=== PATIENT | male | born 1980 | race Caucasian/White ===

== ENCOUNTER 2022-07-08 16:09 | Observation (INO) ==
--- NOTE | 2022-07-08 16:23 | Emergency Department Note ---
Impression & Plan Atrial fibrillation with RVR, Head injury, Concussion ED Provider Note NAME: SYLVIA SCHNEIDER AGE: 41 SEX: M : 1980 ARRIVES VIA: Walk-In INFORMANT: Patient, ED PROVIDER(S): Dinh Khan MD Chief Complaint: Headache, fall, outpatient referral for A. fib with RVR HPI: Patient presents due to concern for a fall which occurred at 1 PM. Patient states he tripped while walking the dog struck the back of his head. The patient states he had an episode of slurred speech for approximate 10 minutes but this is since resolved. The patient does feel as though he has some sort of bubble at the bottom of his chest that does move upward. No exertional symptoms. Patient states he has had similar feeling before in the past and it happens maybe twice a year. The patient does drink Monster and drinks alcohol socially but no drug use. No supplements stimulants or caffeine of than the monster drinks. Patient does complain of a dull occipital headache. No numbness weakness or tingling. Patient was seen in [facility] and referred here as the patient appeared to be in A. fib with RVR. Patient does not take any blood thinning medications. ROS: See HPI for pertinent positives and negatives. A total of 10 systems were reviewed and otherwise negative. Past medical history: See below Surgical history: See below Social history: See below Physical Exam: GENERAL: NAD, non-toxic. EYE EXAM: Normal conjunctiva. PERRL, no anisocoria and EOM's grossly intact w/o pain. Head: Normocephalic atraumatic. NECK: Supple, no nuchal rigidity, no adenopathy, non-tender. No signs of meningismus. FROM of the neck with good chin to chest and neck extension. No stridor. LUNGS: Clear to auscultation. Normal chest wall mechanics. HEART: Tachycardic and irregularly irregular, no MRG. ABDOMEN: Abdomen soft, non-tender, normo-active bowel sounds, no masses, no rebound or guarding. BACK: No CVA TTP. SKIN: No rashes and no bruising. UPPER EXTREMITIES: Upper extremities are grossly normal. LOWER EXTREMITIES: Grossly normal, no edema. Negative Homans' sign bilaterally NEURO EXAM: A&O x3, cranial nerves II-XII grossly intact, normal speech, moves all 4 extremities. Differential diagnoses: A. fib, concussion, stroke, Iinfection, dehydration, metabolic abnormality, hypo/hyperglycemia, electrolyte disturbance, anemia, hypoxia, cardiac sources, intracerebral event, toxicologic, neurologic, as well as other pathologies. Course: Patient was seen and evaluated the bedside. Full history physical exam was perf ormed. EKG interpreted by me A. fib with RVR, rate of 151, normal QRS, normal axis, no obvious ST elevations, slight depressions in the lateral leads. Repeat EKG interpreted by me Normal sinus rhythm, rate of 89, normal intervals, normal axis, T wave inversion present in lead III, no obvious ST elevations, ST depressions have resolved in the lateral leads from EKG from earlier. A. fib has resolved. Imaging Studies: See Below Cardiac monitoring: An order was placed for continuous cardiac monitoring. The monitor shows a rate of 152 with irregularly irregular and tachycardic rhythm. MDM: Patient was seen due to concern for slurred speech which has since resolved and in A. fib with RVR. Blood work is obtained along with CT of the head. Patient did receive IV fluids in addition to a dose of Cardizem. The patient's white count was normal with a normal H&H and platelet count. Kidney function was unremarkable. BSG slightly elevated 121. Troponin not elevated. Patient CT of the head negative and the patient's chest x-ray is clear. Patient has a [id number] of 1. Repeat EKG after Cardizem shows the patient was in her normal sinus rhythm. I did speak with Dr. Blanc who did not recommend that the patient be started on heparin given the low [id number] in light of the pat ient's recent head injury. I did speak the on-call hospitalist Dr. Hameed as the patient has had symptoms that may have been consistent with prior A. fib and given the patient had slurred speech even in light that this is likely related to the patient's head injury and possibly postconcussive related symptom that the patient may benefit from further work-up as A. fib could cause TIA or stroke. Patient was admitted to the medicine service. Critical Care: I have personally spent 35 minutes of critical care time in direct management of this patient. This includes bedside care, interpretation of diagnostic studies, and testing, discussion with consultants, patient, and family members, and other require inpatient management activities. This 35 minutes is in excess of all separately billable procedures. Past Med/Surg History Medical History GERD (gastroesophageal reflux disease) H/O: HTN (hypertension) Surgical History No pertinent past surgical history Social History (Updated 07/08/22 @ 21:26 by Dinh Khan MD) Smoking Status: Never smoker Hx Alcohol Use: Yes Hx Substance Use: No Preferred Language: Urdu Feels Safe at Home: Yes Home Meds Home Medications Medication Instructions Recorded Confirmed lisinopril 10 mg tablet 10 mg PO DAILY 07/08/22 07/08/22 omeprazole 20 mg capsule,delayed 20 mg PO DAILY 07/08/22 07/08/22 release Results & Data (ED) Vital Signs Vital Signs - 24 hr 07/08/22 16:15 07/08/22 16:41 07/08/22 16:41 Temperature 36.4 C L Temperature Source Temporal Artery Scan Pulse Rate 110 H Pulse Rate [Left Radial] 70 Pulse Rhythm Irregular Pulse Rhythm [Left Radial] Respiratory Rate 20 20 Respiratory Effort / Characteristics Non-Labored Spontaneous Respiratory Depth Normal Blood Pressure 139/95 Blood Pressure [Left Arm] 134/74 Blood Pressure Mean 109 Blood Pressure Mean [Left Arm] 94 Blood Pressure Position [Left Arm] Pulse Oximetry 98 97 Oxygen Delivery Method Room Air Room Air Room Air Sepsis Recent Fever Within 48 Hours No Sepsis New/Unexplained Change in Mental Status No Sepsis Action Taken by Nursing No Action Required 07/08/22 16:41 07/08/22 17:27 07/08/22 18:11 Temperature Temperature Source Pulse Rate 155 H 185 H Pulse Rate [Left Radial] 88 Pulse Rhythm Irregular Irregular Pulse Rhythm [Left Radial] Respiratory Rate 20 20 16 Respiratory Effort / Characteristics Respiratory Depth Blood Pressure Blood Pressure [Left Arm] 140/93 Blood Pressure Mean Blood Pressure Mean [Left Arm] 108 Blood Pressure Position [Left Arm] Pulse Oximetry 97 98 95 Oxygen Delivery Method Room Air Room Air Sepsis Recent Fever Within 48 Hours Sepsis New/Unexplained Change in Mental Status Sepsis Action Taken by Nursing 07/08/22 20:00 07/08/22 20:31 Temperature Temperature Source Pulse Rate 99 H Pulse Rate [Left Radial] 70 Pulse Rhythm Pulse Rhythm [Left Radial] Regular Respiratory Rate 20 14 Respiratory Effort / Characteristics Non-Labored Respiratory Depth Normal Blood Pressure 142/108 H Blood Pressure [Left Arm] 115/77 Blood Pressure Mean Blood Pressure Mean [Left Arm] 89 Blood Pressure Position [Left Arm] Lying Pulse Oximetry 99 97 Oxygen Delivery Method Room Air Room Air Sepsis Recent Fever Within 48 Hours Sepsis New/Unexplained Change in Mental Status Sepsis Action Taken by Alf Medications Current Medication List: was personally reviewed by me Laboratory Data Attestation: I reviewed the patient's lab results. Result diagrams: 07/08/22 16:30 07/08/22 16:30 Lab Results 07/08/22 07/08/22 07/08/22 Range/Units 16:30 16:30 16:30 WBC 8.05 (4.8-10.8) K/ul RBC 5.20 (4.63-6.08) M/uL Hgb 14.5 (14.0-18.0) g/dl Hct 43.0 (40.1-51.0) % MCV 82.7 (80.0-100.0) fL MCH 27.9 (25.0-34.0) pg MCHC 33.7 (32.0-36.0) g/dL RDW Std Deviation 38.4 (36.4-46.3) fL RDW Coeff of Shila 12.7 (11.5-14.5) % Plt Count 192 (130-400) K/uL MPV 10.4 (9.4-12.4) fL Immature Gran % (Auto) 0.4 % Neut % (Auto) 69.5 % Lymph % (Auto) 18.5 % [place] % (Auto) 9.8 % Eos % (Auto) 1.4 % Baso % (Auto) 0.4 % Neut # (Auto) 5.60 (1.4-6.5) K/uL Lymph # (Auto) 1.49 (1.2-3.4) K/uL [place] # (Auto) 0.79 (0.24-0.82) K/uL Eos # (Auto) 0.11 (0-0.50) K/uL Baso # (Auto) 0.03 (0-0.2) K/uL Immature Gran # (Auto) 0.03 H (0.00-0.02) K/uL PT 10.3 (9.0-12.0) Seconds INR 1.0 (0.9-1.1) Sodium 138 (136-145) mmol/L Potassium 3.9 (3.5-5.1) mmol/L Chloride 103 (98-107) mmol/L Carbon Dioxide 28 (21-32) mmol/L Anion Gap 7 (3-11) BUN 15 (6-23) mg/dl Creatinine 1.14 (0.6-1.4) mg/dl Est Cr Clr Drug Dosing 101.9 ml/min Est GFR ( Amer) 91.4 ml/min Est GFR (Non-Af Amer) 78.9 ml/min BUN/Creatinine Ratio 13.2 (10-20) Glucose 121 H (70-99(Fasting)) mg/dl Calcium 8.7 (8.5-10.1) mg/dl Magnesium 2.1 (1.7-2.4) mg/dl Total Bilirubin 0.7 (0.2-1.0) mg/dl AST 30 (13-39) U/L ALT 39 (7-52) U/L Alkaline Phosphatase 65 (34-104) U/L Troponin I High Sens 3.7 (0-20) pg/ml Total Protein 7.1 (6.0-8.3) gm/dl Albumin 4.2 (3.4-5.0) gm/dl Globulin 2.9 (2.5-4.0) gm/dl Albumin/Globulin Ratio 1.4 (0.9-2) Lipase 24 (11-82) U/L TSH (0.300-4.500) uIu/ml Urine Color Urine Appearance (Clear) Urine pH (4.5-7.5) Ur Specific [place] (1.000-1.030) Urine Protein (Negative) Urine Glucose (UA) (Negative) Urine Ketones (Negative) Urine Blood (Negative) Urine Nitrite (Negative) Urine Bilirubin (Negative) Urine Urobilinogen (Negative) Ur Leukocyte Esterase (Negative) Lyme Disease IgG Ab (Negative) Lyme Disease IgM Ab (Negative) SARS-CoV-2, RNA, NAAT (NEGATIVE) 07/08/22 07/08/22 07/08/22 Range/Units 16:30 16:30 16:57 WBC (4.8-10.8) K/ul RBC (4.63-6.08) M/uL Hgb (14.0-18.0) g/dl Hct (40.1-51.0) % MCV (80.0-100.0) fL MCH (25.0-34.0) pg MCHC (32.0-36.0) g/dL RDW Std Deviation (36.4-46.3) fL RDW Coeff of Shila (11.5-14.5) % Plt Count (130-400) K/uL MPV (9.4-12.4) fL Immature Gran % (Auto) % Neut % (Auto) % Lymph % (Auto) % [place] % (Auto) % Eos % (Auto) % Baso % (Auto) % Neut # (Auto) (1.4-6.5) K/uL Lymph # (Auto) (1.2-3.4) K/uL [place] # (Auto) (0.24-0.82) K/uL Eos # (Auto) (0-0.50) K/uL Baso # (Auto) (0-0.2) K/uL Immature Gran # (Auto) (0.00-0.02) K/uL PT (9.0-12.0) Seconds INR (0.9-1.1) Sodium (136-145) mmol/L Potassium (3.5-5.1) mmol/L Chloride (98-107) mmol/L Carbon Dioxide (21-32) mmol/L Anion Gap (3-11) BUN (6-23) mg/dl Creatinine (0.6-1.4) mg/dl Est Cr Clr Drug Dosing ml/min Est GFR ( Amer) ml/min Est GFR (Non-Af Amer) ml/min BUN/Creatinine Ratio (10-20) Glucose (70-99(Fasting)) mg/dl Calcium (8.5-10.1) mg/dl Magnesium (1.7-2.4) mg/dl Total Bilirubin (0.2-1.0) mg/dl AST (13-39) U/L ALT (7-52) U/L Alkaline Phosphatase (34-104) U/L Troponin I High Sens (0-20) pg/ml Total Protein (6.0-8.3) gm/dl Albumin (3.4-5.0) gm/dl Globulin (2.5-4.0) gm/dl Albumin/Globulin Ratio (0.9-2) Lipase (11-82) U/L TSH 1.716 (0.300-4.500) uIu/ml Urine Color Urine Appearance (Clear) Urine pH (4.5-7.5) Ur Specific [place] (1.000-1.030) Urine Protein (Negative) Urine Glucose (UA) (Negative) Urine Ketones (Negative) Urine Blood (Negative) Urine Nitrite (Negative) Urine Bilirubin (Negative) Urine Urobilinogen (Negative) Ur Leukocyte Esterase (Negative) Lyme Disease IgG Ab Negative (Negative) Lyme Disease IgM Ab Negative (Negative) SARS-CoV-2, RNA, NAAT NEGATIVE (NEGATIVE) 07/08/22 Range/Units 17:50 WBC (4.8-10.8) K/ul RBC (4.63-6.08) M/uL Hgb (14.0-18.0) g/dl Hct (40.1-51.0) % MCV (80.0-100.0) fL MCH (25.0-34.0) pg MCHC (32.0-36.0) g/dL RDW Std Deviation (36.4-46.3) fL RDW Coeff of Shila (11.5-14.5) % Plt Count (130-400) K/uL MPV (9.4-12.4) fL Immature Gran % (Auto) % Neut % (Auto) % Lymph % (Auto) % [place] % (Auto) % Eos % (Auto) % Baso % (Auto) % Neut # (Auto) (1.4-6.5) K/uL Lymph # (Auto) (1.2-3.4) K/uL [place] # (Auto) (0.24-0.82) K/uL Eos # (Auto) (0-0.50) K/uL Baso # (Auto) (0-0.2) K/uL Immature Gran # (Auto) (0.00-0.02) K/uL PT (9.0-12.0) Seconds INR (0.9-1.1) Sodium (136-145) mmol/L Potassium (3.5-5.1) mmol/L Chloride (98-107) mmol/L Carbon Dioxide (21-32) mmol/L Anion Gap (3-11) BUN (6-23) mg/dl Creatinine (0.6-1.4) mg/dl Est Cr Clr Drug Dosing ml/min Est GFR ( Amer) ml/min Est GFR (Non-Af Amer) ml/min BUN/Creatinine Ratio (10-20) Glucose (70-99(Fasting)) mg/dl Calcium (8.5-10.1) mg/dl Magnesium (1.7-2.4) mg/dl Total Bilirubin (0.2-1.0) mg/dl AST (13-39) U/L ALT (7-52) U/L Alkaline Phosphatase (34-104) U/L Troponin I High Sens (0-20) pg/ml Total Protein (6.0-8.3) gm/dl Albumin (3.4-5.0) gm/dl Globulin (2.5-4.0) gm/dl Albumin/Globulin Ratio (0.9-2) Lipase (11-82) U/L TSH (0.300-4.500) uIu/ml Urine Color Yellow Urine Appearance Clear (Clear) Urine pH 7.0 (4.5-7.5) Ur Specific [place] 1.003 (1.000-1.030) Urine Protein Negative (Negative) Urine Glucose (UA) Negative (Negative) Urine Ketones Negative (Negative) Urine Blood Negative (Negative) Urine Nitrite Negative (Negative) Urine Bilirubin Negative (Negative) Urine Urobilinogen Negative (Negative) Ur Leukocyte Esterase Negative (Negative) Lyme Disease IgG Ab (Negative) Lyme Disease IgM Ab (Negative) SARS-CoV-2, RNA, NAAT (NEGATIVE) Administered Medications Sodium Chloride (Nss 1000ml) 1,000 mls @ 75 mls/hr IV .[id number] EVER Stop: 08/07/22 18:29 Last Admin: 07/08/22 20:33 Dose: 75 mls/hr Documented By: ANA MARIA Miscellaneous Information (Patient's Allergy Info Needs Entered) 1 each N/A Q30M EVER Stop: 08/07/22 20:29 Last Admin: 07/08/22 20:34 Dose: Not Given Documented By: ANA MARIA Discontinued Medications Acetaminophen (Acetaminophen 500 Mg Tab) 1,000 mg PO NOW STA Stop: 07/08/22 16:39 Last Admin: 07/08/22 16:49 Dose: 1,000 mg Documented By: ANA MARIA Diltiazem HCl (Diltiazem Hcl 5 Mg/Ml 5 Ml Vial) 20 mg IV NOW STA Stop: 07/08/22 16:39 Last Admin: 07/08/22 16:51 Dose: 20 mg Documented By: ANA MARIA Co-signed By: AJIT Sodium Chloride (Nss 1000ml) 1,000 mls @ 999 mls/hr IV .Q1H1M EVER Stop: 07/08/22 17:45 Last Infusion: 07/08/22 18:13 Dose: 0 mls/hr Documented By: ANA MARIA Admin: 07/08/22 16:49 Dose: 999 mls/hr Documented By: ANA MARIA Ondansetron HCl (Ondansetron Inj 2 Mg/Ml 2 Ml Vial) 4 mg IV NOW STA Stop: 07/08/22 16:39 Last Admin: 07/08/22 16:49 Dose: 4 mg Documented By: ANA MARIA Imaging Data Radiologist's Impression: Chest X-Ray 07/08/22 16:35 XR chest 1V portable CLINICAL HISTORY: Chest Pain. COMPARISON STUDY: No previous studies for comparison. TECHNIQUE: 1 view of the chest FINDINGS: Single frontal view of the chest demonstrates the cardiomediastinal silhouette to be within normal limits. The lungs are clear of alveolar opacities. There is no evidence for pleural effusion. There is no evidence for vascular congestion. There is no acute osseous pathology. IMPRESSION: 1. No acute cardiopulmonary disease. ACT 112: Negative or not required by law. Electronically signed by: Ab Simon M.D. 07/08/2022 5:[address] 07/08/22 16:38 CT head/brain wo con CLINICAL HISTORY: fall, slurred speech COMPARISON STUDY: No previous studies for comparison. CT DOSE: 537.48 mGy.cm TECHNIQUE: Standard CT of the Brain was performed without IV contrast. A dose lowering technique was utilized adhering to the principles of ALARA. FINDINGS: Extraaxial space: There is no evidence for subdural hematoma. There are no extra-axial fluid collections. Ventricles and cisterns: The ventricles are normal in size and configuration. There is no evidence for midline shift or mass effect. Parenchyma: There is no subarachnoid or intraparenchymal hemorrhage. There is no evidence for an acute infarct or cerebral edema. There is homogeneous attenuation of the brain parenchyma. There are no gross mass lesions. Osseous structures: There is no evidence for an acute fracture. There is mild mucosal thickening involving the ethmoid air cells on the left. The remaining visualized paranasal sinuses are clear. The mastoid air cells are clear bilate rally. Soft tissues: There is no evidence for focal soft tissue swelling. IMPRESSION: 1. No acute intracerebral pathology. ACT 112: Negative or not required by law. Electronically signed by: Ab Simon M.D. 07/08/2022 5:44 PM Cervical Spine X-Ray 07/08/22 18:54 XR cervical spine 2 or 3V CLINICAL HISTORY: neck pain, s/p fall. COMPARISON STUDY: No previous studies for comparison. TECHNIQUE: 5 Views of the cervical Spine FINDINGS: Bones: There is no evidence for fracture or malalignment. The heights of the vertebral bodies are maintained. There are no lytic or blastic lesions present. Disc spaces: There is mild disc space narrowing at C5-6 and C6-7. Apophyseal joints: The apophyseal joints are intact bilaterally. Soft tissues: The paraspinal soft tissues are within normal limits. IMPRESSION: 1. No acute abnormality. 2. Mild degenerative disc disease. ACT 112: Negative or not required by law. Electronically signed by: Ab Simon M.D. 07/08/2022 7:16 PM Discharge Plan Visit Data Chief Complaint: Cardiac Assessment Stated Complaint: HEAD INJURY, SLURRED SPEECH/DIZZINESS AFTER INJURY ED Provider: Dinh Khan Discharge Problem: Atrial fibrillation with RVR, Head injury, Concussion Patient Disposition: Admitted As Inpatient Discharge Instructions Interventions: ED Discharge Assessment Last Done: 07/08/22 20:31 Forms Stand Alone Forms: [place] Prescriptions Prescriptions: No Action lisinopril 10 mg tablet 10 mg PO DAILY omeprazole 20 mg capsule,delayed release(DR/EC) 20 mg PO DAILY Referrals Referrals: Babar Buckley MD [Physician] -
[2022-07-08] MEDS ORDERED: ACETAMINOPHEN 500 MG TAB PO STA (16:38)
[2022-07-08] MEDS ORDERED: dilTIAZem HCl 5 MG/ML 5 ML VIAL IV STA (16:38)
[2022-07-08] MEDS ORDERED: ONDANSETRON INJ 2 MG/ML 2 ML VIAL IV STA (16:38)
[2022-07-08] MEDS ORDERED: SODIUM CHLORIDE 0.9% 1000ML 1,000 ML IV SCH (16:45)
[2022-07-08 16:56] LABS: Basophils # (auto) 0.03 K/uL (0-0.2); Basophils % (auto) 0.4 %; Eosinophils # (auto) 0.11 K/uL (0-0.50); Eosinophils % (auto) 1.4 %; Hemoglobin 14.5 g/dl (14.0-18.0); Immature Granulocytes # (auto) 0.03 K/uL (0.00-0.02); Immature Granulocytes % (auto) 0.4 %; Lymphocytes # (auto) 1.49 K/uL (1.2-3.4); Lymphocytes % (auto) 18.5 %; Mean Corpuscular Hemoglobin 27.9 pg (25.0-34.0); Mean Corpuscular Hgb Conc 33.7 g/dL (32.0-36.0); Mean Corpuscular Volume 82.7 fL (80.0-100.0); Mean Platelet Volume 10.4 fL (9.4-12.4); Monocytes # (auto) 0.79 K/uL (0.24-0.82); Monocytes % (auto) 9.8 %; Neutrophils % (auto) 69.5 %; Platelet Count 192 K/uL (130-400); RDW Coefficient of Variation 12.7 % (11.5-14.5); RDW Standard Deviation 38.4 fL (36.4-46.3); White Blood Count 8.05 K/ul (4.8-10.8)
[2022-07-08 17:06] LABS: Prothrombin Time 10.3 Seconds (9.0-12.0)
--- NOTE | 2022-07-08 17:21 | XRay Report ---
XR chest 1V portable CLINICAL HISTORY: Chest Pain. COMPARISON STUDY: No previous studies for comparison. TECHNIQUE: 1 view of the chest FINDINGS: Single frontal view of the chest demonstrates the cardiomediastinal silhouette to be within normal li mits. The lungs are clear of alveolar opacities. There is no evidence for pleural effusion. There is no evidence for vascular congestion. There is no acute osseous pathology. IMPRESSION: 1. No acute cardiopulmonary disease. ACT 112: Negative or not required by law. Electronically signed by: Ab Simon M.D. 07/08/2022 5:20 PM
[2022-07-08 17:27] LABS: Troponin I High Sensitivity 3.7 pg/ml (0-20)
[2022-07-08 17:32] LABS: Albumin Globulin Ratio 1.4 (0.9-2); Albumin Level 4.2 gm/dl (3.4-5.0); BUN Creatinine Ratio 13.2 (10-20); Bilirubin,Total 0.7 mg/dl (0.2-1.0); Calcium 8.7 mg/dl (8.5-10.1); Creatinine Clr Calc Pharmacy 101.9 ml/min; Est GFR (African American) 91.4 ml/min; Est GFR (Non-African American) 78.9 ml/min; Globulin 2.9 gm/dl (2.5-4.0); Magnesium 2.1 mg/dl (1.7-2.4); Potassium 3.9 mmol/L (3.5-5.1); Total Protein 7.1 gm/dl (6.0-8.3)
--- NOTE | 2022-07-08 17:45 | CT Scan Report ---
CT head/brain wo con CLINICAL HISTORY: fall, slurred speech COMPARISON STUDY: No previous studies for comparison. CT DOSE: 537.48 mGy.cm TECHNIQUE: Standard CT of the Brain was performed without IV contrast. A dose lowering technique was utilized adhering to the principles of ALARA. FINDINGS: Extraaxial space: There is no evidence for subdural hematoma. There are no extra-axial fluid collecti ons. Ventricles and cisterns: The ventricles are normal in size and configuration. There is no evidence fo r midline shift or mass effect. Parenchyma: There is no subarachnoid or intraparenchymal hemorrhage. There is no evidence for an acut e infarct or cerebral edema. There is homogeneous attenuation of the brain parenchyma. There are no g ross mass lesions. Osseous structures: There is no evidence for an acute fracture. There is mild mucosal thickening invo lving the ethmoid air cells on the left. The remaining visualized paranasal sinuses are clear. The ma stoid air cells are clear bilaterally. Soft tissues: There is no evidence for focal soft tissue swelling. IMPRESSION: 1. No acute intracerebral pathology. ACT 112: Negative or not required by law. Electronically signed by: Ab Simon M.D. 07/08/2022 5:44 PM
[2022-07-08 18:07] LABS: Appearance Urine Clear (Clear); Bilirubin Urine Negative (Negative); Blood Urine Negative (Negative); Color Urine Yellow; Glucose Urine UA Negative (Negative); Ketones Urine Negative (Negative); Leukocyte Esterase Urine Negative (Negative); Nitrite Urine Negative (Negative); Protein Urine Negative (Negative); Specific Gravity Urine 1.003 (1.000-1.030); Urobilinogen Urine Negative (Negative)
[2022-07-08] MEDS ORDERED: ACETAMINOPHEN 325 MG TAB PO PRN (18:25)
--- NOTE | 2022-07-08 18:53 | History & Physical Report ---
Date of Service July 08, 2022 Assessment & Plan (1) Head injury: (2) Status post fall: (3) Atrial fibrillation with RVR: Plan: 41-year-old very pleasant with history of hypertension, CAD, presenting with fall, head injury, atrial fibrillation RVR. 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 Patient was walking his dog today, unfortunately tripped, and fell on his back, hitting his head on gravel. Patient was conscious, but noticed to have slurred speech for 5 minutes. He also reports posterior neck pain after the fall. Day proceeded to urgent care for evaluation and was found to be in atrial fibrillation, sent to the ER for evaluation. At the ER, patient received with tachycardia, EKG showing atrial fibrillation RVR. He was given diltiazem 20 mg IV, after which patient converted to normal sinus rhythm, heart rate 80s. CT head: No signs of acute process On exam, the patient was seen resting in bed, patient's Emmie at the bedside. Patient reports mild posterior neck pain, no headache, dizziness, blurring of vision, focal weakness or numbness. Denies chest pain, shortness of breath, dizziness, palpitations. No other pain reported Does report 2 episodes of chest sensation- " feels like a bubble in my chest", within the past year, with no associated symptoms. No other symptoms Home Medications Medication Instructions Recorded Confirmed Type lisinopril 10 mg tablet 10 mg PO DAILY 07/08/22 07/08/22 History omeprazole 20 mg capsule,delayed 20 mg PO DAILY 07/08/22 07/08/22 History release Past Med/Surg History Medical History GERD (gastroesophageal reflux disease) H/O: HTN (hypertension) Surgical History No pertinent past surgical history Social History Smoking Status: Never smoker Preferred Language: Arabic Feels Safe at Home: Yes Review of Systems Review of Systems: all noted and negative except for above Physical Exam Physical Exam: General- oriented x 3, not in distress, speaks in sentences with no effort or accessory muscle use Head-positive small area of erythema in the parietal area, no open wounds Eyes- PERRL, EOMI, anicteric ENT- oropharynx clear Neck- supple, no JVD, no adenopathy, no thyromegaly; carotids +2/2, no bruits appreciated Possible mild tenderness posterior region, no erythema/warmth/hematoma Lungs- clear to auscultation bilaterally, no rales/wheezes Heart- normal rate, regular rhythm; no murmur, no gallop, no rub appreciated Abdomen- normal bowel sounds, nondistended, soft, nontender, no masses or hepatosplenomegaly Extremities- no pretibial edema, no calf tenderness; peripheral pulses intact Neuro- alert, oriented x 3; CN 2-12 grossly intact; motor 5/5 bilaterally ;sensation 100% on all extremities; no other gross focal neurologic deficits Skin- warm & dry. Results & Data Results & Data ([facility]) Vital Signs (Past 12 Hours) Vital Signs Temp Pulse Pulse Resp BP BP Pulse Ox 07/08/22 18:11 88 16 140/93 95 07/08/22 17:27 185 H 20 98 07/08/22 16:41 155 H 20 97 07/08/22 16:41 07/08/22 16:41 70 20 134/74 97 07/08/22 16:15 36.4 C L 110 H 20 139/95 98 O2 Del Method 07/08/22 18:11 07/08/22 17:27 Room Air 07/08/22 16:41 Room Air 07/08/22 16:41 Room Air 07/08/22 16:41 Room Air 07/08/22 16:15 Room Air all noted and reviewed including below
--- NOTE | 2022-07-08 19:19 | XRay Report ---
XR cervical spine 2 or 3V CLINICAL HISTORY: neck pain, s/p fall. COMPARISON STUDY: No previous studies for comparison. TECHNIQUE: 5 Views of the cervical Spine FINDINGS: Bones: There is no evidence for fracture or malalignment. The heights of the vertebral bodies are gino ntained. There are no lytic or blastic lesions present. Disc spaces: There is mild disc space narrowing at C5-6 and C6-7. Apophyseal joints: The apophyseal joints are intact bilaterally. Soft tissues: The paraspinal soft tissues are within normal limits. IMPRESSION: 1. No acute abnormality. 2. Mild degenerative disc disease. ACT 112: Negative or not required by law. Electronically signed by: Ab Simon M.D. 07/08/2022 7:16 PM
[2022-07-08 19:29] LABS: Lyme Ab IgG w/WB Rflx Negative (Negative); Lyme Ab IgM w/WB Rflx Negative (Negative)
[2022-07-08] MEDS: SODIUM CHLORIDE 0.9% 1000ML 1,000 ML IV SCH (20:33)
[2022-07-08] MEDS: Patient's ALLERGY Info needs ENTERED SCH (20:34)
[2022-07-09 06:10] LABS: Basophils # (auto) 0.03 K/uL (0-0.2); Basophils % (auto) 0.5 %; Eosinophils # (auto) 0.15 K/uL (0-0.50); Eosinophils % (auto) 2.5 %; Hematocrit (blood only) 40.6 % (40.1-51.0); Immature Granulocytes # (auto) 0.01 K/uL (0.00-0.02); Immature Granulocytes % (auto) 0.2 %; Lymphocytes # (auto) 1.71 K/uL (1.2-3.4); Lymphocytes % (auto) 28.7 %; Mean Corpuscular Hemoglobin 27.1 pg (25.0-34.0); Mean Corpuscular Volume 84.8 fL (80.0-100.0); Mean Platelet Volume 10.1 fL (9.4-12.4); Monocytes # (auto) 0.72 K/uL (0.24-0.82); Monocytes % (auto) 12.1 %; Neutrophils # (auto) 3.34 K/uL (1.4-6.5); Platelet Count 179 K/uL (130-400); RDW Standard Deviation 40.1 fL (36.4-46.3); Red Blood Count 4.79 M/uL (4.63-6.08); White Blood Count 5.96 K/ul (4.8-10.8)
[2022-07-09 06:32] LABS: BUN Creatinine Ratio 11.7 (10-20); Calcium 8.3 mg/dl (8.5-10.1); Creatinine Clr Calc Pharmacy 104.4 ml/min; Est GFR (African American) 94.4 ml/min; Est GFR (Non-African American) 81.5 ml/min; Magnesium 2.2 mg/dl (1.7-2.4); Potassium 4.1 mmol/L (3.5-5.1)
[2022-07-09 08:10] VITALS: TEMP 98.6; O2SAT 94
--- NOTE | 2022-07-09 08:44 | Magnetic Resonance Report ---
MR brain wo con HISTORY: 41 years-old Male fall, slurred speech, r/o CVA acute strokelike symptoms. Head trauma with recent fall COMPARISON: Head CT of same day TECHNIQUE: Multiplanar multisequence MRI of the brain was obtained without the use of IV contrast. FINDINGS: No restricted diffusion. Unremarkable midline structures. No acute intracranial hemorrhage, midline s hift, abnormal extra-axial collection, hydrocephalus or intracranial mass. No pathologic blooming art ifact. Volume and signal of the brain parenchyma is within normal limits. Cerebral venous sinuses and major arterial flow voids appear patent. Mucosal thickening of the parana esmer sinuses is severe and near complete within the left maxillary sinus. Moderate mucosal thickening of the ethmoid air cells, greatest in the left. There is a 1.8 cm focus of polypoid mucosal thickenin g within the right maxillary sinus. Skull, orbits and soft tissues are unremarkable. IMPRESSION: 1. No acute intracranial abnormality. 2. Moderate to severe paranasal sinus disease. ACT 112: Negative or not required by law. The above report was generated using voice recognition software. It may contain grammatical, syntax o r spelling errors. Electronically signed by: Watson Wilhelm M.D. 07/09/2022 8:43 AM
[2022-07-09] MEDS ORDERED: lisinopril 10 MG TAB PO SCH (09:00)
[2022-07-09] MEDS ORDERED: PANTOprazole 40 MG TAB PO SCH (09:00)
--- NOTE | 2022-07-09 09:14 | Electrocardiogram Report ---
Test Reason : Blood Pressure : / mmHG Vent. Rate : 151 BPM Atrial Rate : 150 BPM P-R Int : 000 ms QRS Dur : 080 ms QT Int : 286 ms P-R-T Axes : 000 009 -71 degrees QTc Int : 453 ms Atrial fibrillation with rapid ventricular response Marked ST abnormality, possible inferior subendocardial injury Abnormal ECG No previous ECGs available Confirmed by Ezio Dee ([id number]) on 07/09/2022 9:14:20 AM Referred By: REFERRED SELF Confirmed By:Ezio Dee
--- NOTE | 2022-07-09 09:20 | Electrocardiogram Report ---
Test Reason : Blood Pressure : / mmHG Vent. Rate : 089 BPM Atrial Rate : 089 BPM P-R Int : 146 ms QRS Dur : 080 ms QT Int : 354 ms P-R-T Axes : 042 -01 010 degrees QTc Int : 430 ms Normal sinus rhythm Possible Left atrial enlargement Nonspecific ST and T wave abnormality Abnormal ECG When compared with ECG of 08-JUL-2022 16:24, (unconfirmed) Sinus rhythm has replaced Atrial fibrillation Vent. rate has decreased BY [address] no longer depressed in Lateral leads T wave inversion no longer evident in Inferior leads Confirmed by Ezio Dee ([id number]) on 07/09/2022 9:20:13 AM Referred By: REFERRED SELF Confirmed By:Ezio Dee
--- NOTE | 2022-07-09 10:41 | Cardiology Consultation ---
Date of Consultation July 09, 2022 Assessment & Plan (1) Paroxysmal atrial fibrillation: (2) HTN (hypertension): (3) Status post fall: (4) Concussion: Plan Patient is a 41-year-old male without prior history of cardiac disease or known arrhythmia who suffered a purely mechanical fall with head injury yesterday possible mild concussion post. On presentation was found to be in atrial fibrillation which promptly return to sinus rhythm following single dose of IV diltiazem. History is notable for hypertension with only fair control currently and by patient history. Underlying sleep apnea possible. Echocardiogram notable only for left ventricular hypertrophy Recommendations: 1. Paroxysmal atrial fibrillation: Newly observed. Patient's [id number] 2 score of 1 with contraindications to anticoagulation with recent head injury and currently in sinus rhythm. Would recommend adding metoprolol succinate 25 mg p.o. daily for additional hypertension control in the setting of left ventricular hypertrophy, paroxysmal atrial fibrillation. Hypertension likely contributing factor Will recommend Zio patch event monitor 2 weeks to be placed in 2 weeks Patient with several risk factors and history suggestive of possible sleep apnea would recommend sleep study post discharge Follow-up cardiology 4 to 6 weeks after above studies complete 2. Cardiovascular risk factors to be addressed as outpatient include borderline hyperlipidemia, obesity, possible sleep apnea as above, hypertension History of Present Illness Reason for Consultation: Paroxysmal atrial fibrillation Requesting Physician: Dr. Cassidy Attending Physician: Sherley Cassidy MD History of Present Illness Patient is a 41-year-old male whose history is notable for hypertension, gastroesophageal reflux and moderate obesity who presents after suffering a mechanical fall tripping over her dog and dog leash with head contusion probable concussion. Patient denies any dizziness lightheadedness or loss of consciousness. Notes fall was purely mechanical On ER presentation he was found to be in atrial fibrillation with rapid trickle response. Patient spontaneously converted to sinus rhythm with single dose of IV diltiazem. Denies any cardiac complaints this morning Patient denies prior history of known cardiac disease. Notes no history of rheumatic fever scarlet fever or valvular heart disease. No prior history of arrhythmias. Has felt sensation of possible heart racing or pounding at times in the past. No syncope or near syncope. He notes no history of TIA or stroke, diabetes mellitus, congestive heart failure, vascular disease Family history notable for hypertension and hyperlipidemia but no premature coronary disease No recent fevers chills or unexplained infections. No bleeding difficulties. Appetite and weight are stable. Patient is aware of some sleep disruption with loud snoring Allergies Allergy/AdvReac Type Severity Reaction Status Date / Time No Known Allergies Allergy Unverified 07/08/22 22:13 Home Medications Medication Instructions Recorded Confirmed Type lisinopril 10 mg tablet 10 mg PO DAILY 07/08/22 07/08/22 History omeprazole 20 mg capsule,delayed 20 mg PO DAILY 07/08/22 07/08/22 History release Patient History Medical History GERD (gastroesophageal reflux disease) H/O: HTN (hypertension) Surgical History No pertinent past surgical history Social History Smoking Status: Never smoker Hx Alcohol Use: Yes Alcohol type: beer and hard liquor Hx Substance Use: No Preferred Language: Latvian Communication Ability: Effective J2Ee Programmer Required: No Beliefs That Will Affect Care: None Current Living Situation: Spouse Other Information That Helps Us Care for You: No Feels Safe at Home: Yes Safety Concerns: Feels Safe At This Time Assistive Devices: None Review of Systems Review of Systems: All systems reviewed & are unremarkable except as noted in HPI & below Physical Exam Constitutional: WD/WN, vitals as above Eyes: PERRL, conjunctivae normal, anicteric sclerae ENMT: external ear and nose normal, oropharynx normal Neck: trachea midline, no thyromegaly Respiratory: normal respiratory effort, lungs clear to auscultation Cardiovascular: Rate/Rhythm: regular rate and regular rhythm Heart Sounds: normal S1 and normal S2; no gallop and no murmur Palpation: normal PMI Vessels: normal carotid upstroke and radial pulses present; no JVD and no carotid bruit Extremities: no edema Gastrointestinal (Abdomen): normal bowel sounds, soft, nontender, no hepatosplenomegaly Musculoskeletal: no cyanosis or clubbing, extremities motor strength 5/5 Skin: no rashes, warm and dry Neurologic: PERRL, EOMI, accommodation nl, no face palsy, no dysarthria Psychiatric: A+Ox3, euthymic affect Results & Data ([facility]) Vital Signs (Past 12 Hours) Vital Signs Temp Pulse Resp BP Pulse Ox O2 Del Method 07/09/22 09:01 90 14 159/88 H 07/09/22 07:59 86 19 160/95 H 94 Room Air 07/09/22 07:59 37.0 C 07/09/22 07:50 85 07/09/22 05:57 36.9 C 07/09/22 05:50 70 12 07/09/22 05:40 65 12 07/09/22 05:30 63 15 07/09/22 05:20 65 12 07/09/22 05:10 67 12 07/09/22 05:00 64 13 07/09/22 05:00 150/84 H 07/09/22 04:50 64 15 07/09/22 04:40 59 L 15 07/09/22 04:30 65 14 07/09/22 04:20 62 14 07/09/22 04:10 63 15 07/09/22 04:00 63 16 07/09/22 04:00 134/87 07/09/22 03:50 66 19 07/09/22 03:40 61 15 07/09/22 03:30 61 16 07/09/22 03:20 60 15 07/09/22 03:10 63 16 07/09/22 03:00 72 19 07/09/22 03:00 138/86 07/09/22 02:50 68 13 07/09/22 02:40 69 18 07/09/22 02:30 67 13 07/09/22 02:20 65 12 07/09/22 02:10 70 17 07/09/22 02:01 75 18 07/09/22 02:01 143/86 H 07/09/22 02:00 68 16 07/09/22 01:50 61 14 07/09/22 01:40 63 15 07/09/22 01:30 68 16 07/09/22 01:20 68 19 07/09/22 01:10 73 18 07/09/22 01:00 67 22 07/09/22 00:50 82 15 07/09/22 00:40 68 16 07/09/22 00:30 66 23 07/09/22 00:20 78 13 07/09/22 00:10 72 6 L 07/09/22 00:00 75 9 L 07/09/22 00:00 168/104 H 07/08/22 23:50 74 9 L 07/08/22 23:40 76 23 07/08/22 23:30 86 22 07/08/22 23:29 85 15 07/08/22 23:29 158/94 H 07/08/22 23:27 81 17 07/08/22 22:40 76 19 97 07/09/22 00:00 49 L Laboratory Results Laboratory Results - last 24 hr 07/08/22 07/08/22 07/08/22 16:30 16:30 16:30 WBC 8.05 RBC 5.20 Hgb 14.5 Hct 43.0 MCV 82.7 MCH 27.9 MCHC 33.7 RDW Std Deviation 38.4 RDW Coeff of Shila 12.7 Plt Count 192 MPV 10.4 Immature Gran % (Auto) 0.4 Neut % (Auto) 69.5 Lymph % (Auto) 18.5 Arthur % (Auto) 9.8 Eos % (Auto) 1.4 Baso % (Auto) 0.4 Neut # (Auto) 5.60 Lymph # (Auto) 1.49 Arthur # (Auto) 0.79 Eos # (Auto) 0.11 Baso # (Auto) 0.03 Immature Gran # (Auto) 0.03 H PT 10.3 INR 1.0 Sodium 138 Potassium 3.9 Chloride 103 Carbon Dioxide 28 Anion Gap 7 BUN 15 Creatinine 1.14 Est Cr Clr Drug Dosing 101.9 Est GFR ( Amer) 91.4 Est GFR (Non-Af Amer) 78.9 BUN/Creatinine Ratio 13.2 Glucose 121 H Calcium 8.7 Magnesium 2.1 Total Bilirubin 0.7 AST 30 ALT 39 Alkaline Phosphatase 65 Troponin I High Sens 3.7 Total Protein 7.1 Albumin 4.2 Globulin 2.9 Albumin/Globulin Ratio 1.4 Lipase 24 TSH Urine Color Urine Appearance Urine pH Ur Specific [place] Urine Protein Urine Glucose (UA) Urine Ketones Urine Blood Urine Nitrite Urine Bilirubin Urine Urobilinogen Ur Leukocyte Esterase Nasal Screen MRSA (PCR) Lyme Disease IgG Ab Lyme Disease IgM Ab SARS-CoV-2, RNA, NAAT 07/08/22 07/08/22 07/08/22 16:30 16:30 16:57 WBC RBC Hgb Hct MCV MCH MCHC RDW Std Deviation RDW Coeff of Shila Plt Count MPV Immature Gran % (Auto) Neut % (Auto) Lymph % (Auto) Arthur % (Auto) Eos % (Auto) Baso % (Auto) Neut # (Auto) Lymph # (Auto) Arthur # (Auto) Eos # (Auto) Baso # (Auto) Immature Gran # (Auto) PT INR Sodium Potassium Chloride Carbon Dioxide Anion Gap BUN Creatinine Est Cr Clr Drug Dosing Est GFR ( Amer) Est GFR (Non-Af Amer) BUN/Creatinine Ratio Glucose Calcium Magnesium Total Bilirubin AST ALT Alkaline Phosphatase Troponin I High Sens Total Protein Albumin Globulin Albumin/Globulin Ratio Lipase TSH 1.716 Urine Color Urine Appearance Urine pH Ur Specific [place] Urine Protein Urine Glucose (UA) Urine Ketones Urine Blood Urine Nitrite Urine Bilirubin Urine Urobilinogen Ur Leukocyte Esterase Nasal Screen MRSA (PCR) Lyme Disease IgG Ab Negative Lyme Disease IgM Ab Negative SARS-CoV-2, RNA, NAAT NEGATIVE 07/08/22 07/08/22 07/09/22 17:50 22:00 05:54 WBC 5.96 RBC 4.79 Hgb 13.0 L Hct 40.6 MCV 84.8 MCH 27.1 MCHC 32.0 RDW Std Deviation 40.1 RDW Coeff of Shila 13.0 Plt Count 179 MPV 10.1 Immature Gran % (Auto) 0.2 Neut % (Auto) 56.0 Lymph % (Auto) 28.7 Arthur % (Auto) 12.1 Eos % (Auto) 2.5 Baso % (Auto) 0.5 Neut # (Auto) 3.34 Lymph # (Auto) 1.71 Arthur # (Auto) 0.72 Eos # (Auto) 0.15 Baso # (Auto) 0.03 Immature Gran # (Auto) 0.01 PT INR Sodium Potassium Chloride Carbon Dioxide Anion Gap BUN Creatinine Est Cr Clr Drug Dosing Est GFR ( Amer) Est GFR (Non-Af Amer) BUN/Creatinine Ratio Glucose Calcium Magnesium Total Bilirubin AST ALT Alkaline Phosphatase Troponin I High Sens Total Protein Albumin Globulin Albumin/Globulin Ratio Lipase TSH Urine Color Yellow Urine Appearance Clear Urine pH 7.0 Ur Specific [place] 1.003 Urine Protein Negative Urine Glucose (UA) Negative Urine Ketones Negative Urine Blood Negative Urine Nitrite Negative Urine Bilirubin Negative Urine Urobilinogen Negative Ur Leukocyte Esterase Negative Nasal Screen MRSA (PCR) Negative Lyme Disease IgG Ab Lyme Disease IgM Ab SARS-CoV-2, RNA, NAAT 07/09/22 05:54 WBC RBC Hgb Hct MCV MCH MCHC RDW Std Deviation RDW Coeff of Shila Plt Count MPV Immature Gran % (Auto) Neut % (Auto) Lymph % (Auto) Arthur % (Auto) Eos % (Auto) Baso % (Auto) Neut # (Auto) Lymph # (Auto) Arthur # (Auto) Eos # (Auto) Baso # (Auto) Immature Gran # (Auto) PT INR Sodium 141 Potassium 4.1 Chloride 107 Carbon Dioxide 29 Anion Gap 5 BUN 13 Creatinine 1.11 Est Cr Clr Drug Dosing 104.4 Est GFR ( Amer) 94.4 Est GFR (Non-Af Amer) 81.5 BUN/Creatinine Ratio 11.7 Glucose 105 H Calcium 8.3 L Magnesium 2.2 Total Bilirubin AST ALT Alkaline Phosphatase Troponin I High Sens Total Protein Albumin Globulin Albumin/Globulin Ratio Lipase TSH Urine Color Urine Appearance Urine pH Ur Specific [place] Urine Protein Urine Glucose (UA) Urine Ketones Urine Blood Urine Nitrite Urine Bilirubin Urine Urobilinogen Ur Leukocyte Esterase Nasal Screen MRSA (PCR) Lyme Disease IgG Ab Lyme Disease IgM Ab SARS-CoV-2, RNA, NAAT Diagnostic Findings Echocardiogram 07/09/2022 Normal left her size and function EF 60 to 65% with moderate left hypertrophy and grade 1 diastolic dysfunction Left atrial size is normal and there is no valvular disease
[2022-07-09] MEDS ORDERED: METOPROLOL SUCC 25MG EXT REL TAB PO SCH (10:45)
[2022-07-09] MEDS: SODIUM CHLORIDE 0.9% 1000ML 1,000 ML IV SCH (11:45)
[2022-07-09] MEDS: Patient's ALLERGY Info needs ENTERED SCH ×2 (11:47→12:09)
--- NOTE | 2022-07-09 13:14 | Discharge Summary ---
Date of Service July 09, 2022 Admission HPI Per Admitting Provider 41-year-old very pleasant with history of hypertension, CAD, presenting with fall, head injury, atrial fibrillation RVR. Patient was walking his dog today, unfortunately tripped, and fell on his back, hitting his head on gravel. Patient was conscious, but noticed to have slurred speech for 5 minutes. He also reports posterior neck pain after the fall. Day proceeded to urgent care for evaluation and was found to be in atrial fibrillation, sent to the ER for evaluation. At the ER, patient received with tachycardia, EKG showing atrial fibrillation RVR. He was given diltiazem 20 mg IV, after which patient converted to normal sinus rhythm, heart rate 80s. CT head: No signs of acute process On exam, the patient was seen resting in bed, patient's Emmie at the bedside. Patient reports mild posterior neck pain, no headache, dizziness, blurring of vision, focal weakness or numbness. Denies chest pain, shortness of breath, dizziness, palpitations. No other pain reported Does report 2 episodes of chest sensation- " feels like a bubble in my chest", within the past year, with no associated symptoms. No other symptoms Admission Exam Per Admitting Provider General- oriented x 3, not in distress, speaks in sentences with no effort or accessory muscle use Head-positive small area of erythema in the parietal area, no open wounds Eyes- PERRL, EOMI, anicteric ENT- oropharynx clear Neck- supple, no JVD, no adenopathy, no thyromegaly; carotids +2/2, no bruits appreciated Possible mild tenderness posterior region, no erythema/warmth/hematoma Lungs- clear to auscultation bilaterally, no rales/wheezes Heart- normal rate, regular rhythm; no murmur, no gallop, no rub appreciated Abdomen- normal bowel sounds, nondistended, soft, nontender, no masses or hepatosplenomegaly Extremities- no pretibial edema, no calf tenderness; peripheral pulses intact Neuro- alert, oriented x 3; CN 2-12 grossly intact; motor 5/5 julio aterally;sensation 100% on all extremities; no other gross focal neurologic deficits Skin- warm & dry. Principal Diagnosis A. fib with RVR, new onset Head injury, status post mechanical fall Discharge Exam GENERAL: Alert and oriented x3. NAD, on RA. Obese class I. HEENT: No pallor, no icterus. Pupils equal, round and reactive to light. Oral mucosa moist. NECK: No JVD, no neck masses. HEART: S1 and S2 heard. Regular rate and rhythm. No murmur, no gallop. RESPIRATORY SYSTEM: Normal AP diameter. No accessory muscle use. No wheezing, no crackles. ABDOMEN: Soft, bowel sounds present, nontender, no distention. CENTRAL NERVOUS SYSTEM: No facial droop. Speech is clear. Obeys simple c ommands. Moves extremities. EXTREMITIES: No edema, no erythema seen. Discharge Data Allergies Allergy/AdvReac Type Severity Reaction Status Date / Time No Known Allergies Allergy Unverified 07/08/22 22:13 Consultations 07/08/22 18:25 Consult Cardiology Routine 07/08/22 18:45 ED Decision to Admit Stat Ordered Studies 07/08/22 16:38 CT head/brain wo con Stat 07/08/22 18:25 MRI Brain [MR brain wo con] Stat Hospital Course (1) Head injury: (2) Status post fall: (3) Atrial fibrillation with RVR: 41-year-old very pleasant with history of hypertension, CAD, presented 07/08 with fall, head injury, atrial fibrillation RVR. Patient tripped while walking his dog and landed on gravel. CT head/x-ray C-spine/brain MRI without acute findings related to fall. Patient does have flulike illness for 2 to 3 days at presentation, denies any purulent sputum or fever. Patient was also found to have A. fib with RVR, new onset and concern for underlying sleep apnea. Troponin was normal at presentation. Patient without chest pain. Patient received diltiazem in the ED with conversion to sinus rhythm, patient maintained sinus rhythm and is evaluated by cardiology, patient is being started on metoprolol succinate 25 mg daily. TSH was normal, echocardiogram reviewed, Lyme screen and COVID test negative. Patient to get sleep study as an outpatient and then follow-up with cardiology in 4 to 6 weeks. Patient advised for Zio patch monitoring, patient to contact cardiology office for this. Patient without chest pain or headache. Patient WNL with regards to her neurological assessment. Patient would like to go home. [id number] score 1, no anticoagulation for now given recent head injury and patient is currently in sinus rhythm. Patient being discharged home with following instruction at the point of discharge: Follow-up with your primary care physician within a week time. For your fall, you underwent scans of your head and neck without acute findings related to fall. You are found to have some paranasal sinus disease, which correlates with your cold/flulike illness ongoing for 2-3 days, if the condition prolongs beyond 10 days or if you have worsening symptoms with purulent/foul- smelling/changing color of your sputum, get in touch with your primary care physician for further recommendation. Cardiology evaluated you for your new onset atrial fibrillation, you are being started on metoprolol succinate 25 mg daily. You are also recommended to have a Zio patch monitoring as an outpatient, contact with your cardiology office. Advised to get sleep study as an outpatient and then follow-up with cardiology in 4 to 6 weeks time. Take your medications as prescribed. Total Time Total Time Spent Total Time Spent (In Minutes): 35 Discharge Plan Discharge Items Patient Disposition: Home - Self-Care Reason For Visit: AFIB,HEAD TRAUMA Discharge Diagnosis: A. fib with RVR, new onset Head injury, status post mechanical fall Activity: Resume your previous activity Non-emergency contact: Primary Care Provider Call non-emergency contact if: you have any medication questions, your symptoms worsen and your temperature is above 101 Follow-up/Referrals: Noah Arevalo, DO [Outside Practitioners] - (Date & Time 07/13/2022 3:20 PM Provider Gt Faith MD Department [facility] ) Diet: Heart Healthy Addtl Attending Provider Instructions: Follow-up with your primary care physician within a week time. For your fall, you underwent scans of your head and neck without acute findings related to fall. You are found to have some paranasal sinus disease, which correlates with your cold/flulike illness ongoing for 2-3 days, if the condition prolongs beyond 10 days or if you have worsening symptoms with purulent/foul- smelling/changing color of your sputum, get in touch with your primary care physician for further recommendation. Cardiology evaluated you for your new onset atrial fibrillation, you are being started on metoprolol succinate 25 mg daily. You are also recommended to have a Zio patch monitoring as an outpatient, contact with your cardiology office. Advised to get sleep study as an outpatient and then follow-up with cardiology in 4 to 6 weeks time. Take your medications as prescribed. Pending Studies at Discharge: No Stand-Alone Forms: My [facility], Smoking Cessation Medications and DC Order Prescriptions: New metoprolol succinate 25 mg Tablet Extended Release 24 Hr 25 mg PO QAM Qty: 30 0RF Continued lisinopril 10 mg tablet 10 mg PO DAILY omeprazole 20 mg capsule,delayed release(DR/EC) 20 mg PO DAILY Discharge Orders: Discharge Order (Routine); Ordered 07/09/22 Ordered By: Sherley Csasidy Admission Data Admit Date/Time: 07/08/22 20:14 Attending Provider: Sherley Cassidy Admit Provider: Delmer Hameed Primary Care Provider: PCP,NO Other Providers: Darnell Blanc Robin A.
[2022-07-09 13:23] VITALS: BP 145/94; PULSE 74
== END 2022-07-09 13:53 | disposition home or self-care (01) ==
LOC: ED 16:09 → 1E 16:09 → SUATTDRO 20:14 → 1E 20:31
DX: Z79.899 Other long term (current) drug therapy; I10 Essential (primary) hypertension; R47.81 Slurred speech; S09.90XA Unspecified injury of head, initial encounter; I48.91 Unspecified atrial fibrillation; S06.0X9A Concussion with loss of consciousness of unspecified duration, initial encounter; W18.09XA Striking against other object with subsequent fall, initial encounter; I25.10 Atherosclerotic heart disease of native coronary artery without angina pectoris